=== PATIENT | male | born 1955 | race Caucasian/White ===

== ENCOUNTER 2017-04-10 15:38 | Observation (INO) | payer OTHER, MEDICAID ==
--- NOTE | 2017-04-10 15:53 | EDPHY ---
H & P HPI/ROS: CHIEF COMPLAINT: Hypoxemia HISTORY OF PRESENT ILLNESS: This patient is a 61 year old male with Down Syndrome arriving with his ramp agent for evaluation of low oxygen saturation. He resided at [facility] ([facility]) until a couple of weeks ago, and arrives today with his new ramp agent. His ramp agent states the patient began coughing last night and seemed weak this morning. He ate breakfast like normal, but by noon, he seemed sleepy and was staring at the ceiling with his eyes and mouth wide open. His ramp agent was unable to get him to eat lunch. His medical history states he has chronic respiratory failure with hypoxia, but does not discuss cause. The patient has a cognitive communication deficit as well and is unable to verbalize and further discuss symptoms or history. Caregiver tells me that the patient was on nebulizers prior to being transferred to his care but that these were not continued. He is not on supplemental oxygen. Wheelchair bound. HPI obtained primarily through ramp agent at bedside and past medical records. REVIEW OF SYSTEMS: Unable to perform full ROS due to patient's inability to communicate. Past medical history: Chronic respiratory failure, Down Syndrome, Generalized muscle weakness, Dysphagia, Hypothyroidism, Developmental disorder, Cognitive communication deficit. Past surgical history: Noncontributory Family history: Unknown Social history: Lives in [place]. Caregiver at bedside. General Appearance: Exam difficult due to patient presentation and communication deficit. Vital signs reviewed. BP 156/92. Eyes: Pupils equal and round, no conjunctival injection, no discharge. Anicteric. ENT, Mouth: Mucous membranes are dry, no oropharyngeal erythema or edema. Neck: No lymphadenopathy, supple. Respiratory: Breath sounds difficult to auscultate, crackles at bases Rmore than left.. Poor effort. Cardiovascular: Regular rate and rhythm; no murmur, rub, or gallop. Gastrointestinal: Abdomen is soft, no masses or organomegaly, bowel sounds normal. Skin: Warm and dry, no rashes on exposed skin, normal color. Back: Nontender to palpation over the thoracolumbar spine. No apparent CVAT. Extremities: No lower extremity edema, no calf swelling. Neurological: Moves all four extremities spontaneously but minimally. Psychiatric: No agitation. Constitutional: Initial Vital Signs Temperature (C) 36.8 C 04/10/17 15:52 Heart Rate 87 04/10/17 15:52 Respiratory Rate 18 04/10/17 15:52 Blood Pressure 156/92 H 04/10/17 15:52 O2 Sat (%) 93 04/10/17 15:52 O2 Delivery Mode Nasal Cannula O2 (L/minute) 2 Allergies/Adverse Reactions: bacitracin [From Neosporin ([id number])] Allergy (Verified 04/10/17 15:55) neomycin [From Neosporin ([id number])] Allergy (Verified 04/10/17 15:55) polymyxin B [From Neosporin ([id number])] Allergy (Verified 04/10/17 15:55) Sulfa (Sulfonamide Antibiotics) Allergy (Verified 04/10/17 15:55) tobramycin [From Tobrex] Allergy (Verified 04/10/17 15:55) Home Medications: Medication Instructions Recorded Ascorbic Acid [Vitamin C 500 mg 500 mg PO BID 04/10/17 (*)] Carbamide Peroxide [Debrox Ear 5 drop EACHEAR SA 04/10/17 drops (*)] Carboxymethylcellulos/Glycerin 1 drop EACHEYE DAILY 04/10/17 [Refresh Optive Eye Drops] Carboxymethylcellulose 1% [Refresh 1 nicol EACHEYE DAILY PRN 04/10/17 Celluvisc (*)] Diazepam [Valium 10 MG (*)] 10 mg PO Q6H PRN 04/10/17 Eyelid Cleanser Comb No.7 [Ocusoft 1 each TP BID 04/10/17 Lid Scrub] Ibuprofen [Motrin (*)] 400 mg PO Q4H PRN 04/10/17 Levothyroxine [Synthroid 75 mcg 75 mcg PO DAILY06 04/10/17 (*)] Mineral Oil [MINERAL OIL ENEMA] 7 gm RC DAILY PRN 04/10/17 Multivitamins [Multivitamin (*)] 1 each PO DAILY 04/10/17 Sennosides/Docusate Sodium 1 each PO DAILY 04/10/17 [SENEXON-S TABLET] Zolpidem Tartrate [Ambien] 10 mg PO HS 04/10/17 traZODone [traZODONE 100MG (*)] 100 mg PO HS 04/10/17 Acetaminophen [Tylenol Rectal] 650 mg OH Q4HRS PRN #0 supp 04/11/17 Tamsulosin HCl [Flomax 0.4 MG (*)] 0.4 mg PO DAILY #10 cap 04/11/17 levOFLOXACIN [levAQUIN (*)] 750 mg PO DAILY #6 tab 04/11/17 Medical Decision Making ED Course/Re-evaluation: 61 year old male with Down Syndrome and communication deficits presents following reported hypoxemia. Plan for chest x-ray, labs including CBC and BMP, and hydration for 1L IV NS. Chest x-ray shows hypoventilatory chest with indistinct right basilar opacities that could be related to atelectasis or pneumonia. Lateral chest x-ray was not obtained. Patient's SpO2 dropped to 83% on room air, 93% on 2 L NC. Plan to admit. He received rocephin one gram IV in ED for possible pneumonia. It is unclear to me whether this is a pneumonia or worsening of baseline. 18:[address] Rowe, hospitalist. He accepts admission for pneumonia. Differential Diagnosis: Shortness of breath including but not limited to pulmonary infectious process, COPD, asthma, pulmonary embolus and congestive heart failure. - Data Points Laboratory Results: Laboratory Results 04/10/17 16:20 04/10/17 16:20 Medications Given: Discontinued Medications Diazepam (Valium Injection) 5 mg IVP Q6HRS PRN PRN Reason: Anxiety, Unable to Take PO Stop: 10/07/17 22:14 Last Admin: 04/11/17 13:34 Dose: 5 mg Heparin Sodium (Porcine) (Heparin Sc Injection) 5,000 unit SC Q8 CRWO Stop: 10/07/17 21:59 Last Admin: 04/11/17 15:20 Dose: Not Given Sodium Chloride (Ns) 1,000 mls @ 0 mls/hr IV EDNOW ONE; Wide Open PRN Reason: Protocol Stop: 04/10/17 16:10 Last Admin: 04/10/17 16:25 Dose: 1,000 mls Cefepime HCl 1 gm/ Dextrose 50 mls @ 100 mls/hr IV EDNOW ONE PRN Reason: Protocol Stop: 04/10/17 18:24 Last Admin: 04/10/17 18:18 Dose: Not Given Ceftriaxone Sodium/Dextrose (Rocephin 1 Gm (Premix)) 50 mls @ 100 mls/hr IV EDNOW ONE PRN Reason: Protocol Stop: 04/10/17 18:35 Last Admin: 04/10/17 18:16 Dose: 50 mls Sodium Chloride (Ns) 1,000 mls @ 75 mls/hr IV CONT CROW Stop: 10/07/17 20:14 Last Admin: 04/11/17 11:31 Dose: 1,000 mls Levothyroxine Sodium (Synthroid) 75 mcg PO DAILY06 CROW Stop: 10/08/17 05:59 Last Admin: 04/11/17 06:12 Dose: 75 mcg Departure - Departure Disposition: [facility] Inpatient Acute Clinical Impression: Pneumonia Qualifiers: Pneumonia type: due to unspecified organism Laterality: right Lung location: lower lobe of lung Qualified Code(s): J18.1 - Lobar pneumonia, unspecified organism Condition: Fair Report Scribed for: Cass Moser Report Scribed by: Gali Link Date of Report: 04/10/17 Time of Report: 17:35 Physician Review and Approval Statement: 04/10/17 15:53 Portions of this note were transcribed by the medical insurance claims processor. I, Dr. Cass Moser, personally performed the history, physical exam, and medical decision- making; and confirmed the accuracy of the information in the transcribed note.
[2017-04-10] MEDS ORDERED: NS 1,000 ML IV ONE (16:09)
[2017-04-10 16:32] LABS: % IMMATURE GRANULYOCYTES 0.6 % (0.0-1.1); ABSOLUTE IMMATURE GRANULOCYTES 0.07 10^3/uL (0.00-0.10); ADD DIFF? NO; ADD MORPH? NO; ADD SCAN? NO; ATYPICAL LYMPHOCYTE FLAG 0 (0-99); FRAGMENT RBC FLAG 0 (0-99); HEMATOCRIT 37.2 % (40.0-51.0); HEMOGLOBIN 12.3 g/dL (13.7-17.5); LEFT SHIFT FLG 10 (0-99); LIPEMIA HEMOLYSIS FLAG 80 (0-99); MEAN CELL HEMOGLOBIN 32.5 pg (27.9-34.1); MEAN CELL HEMOGLOBIN CONCENTR. 33.1 g/dL (32.4-36.7); MEAN CELL VOLUME 98.4 fL (81.5-99.8); MEAN PLATELET VOLUME 9.9 fL (8.7-11.7); PLATELET CLUMPS FLAG 20 (0-99); PLATELET COUNT 344 10^3/uL (150-400); RED BLOOD CELL COUNT 3.78 10^6/uL (4.40-6.38)
[2017-04-10 16:45] LABS: ANION GAP 14 mEq/L (8-16); CARBON DIOXIDE 29 mEq/l (22-31); CHLORIDE 96 mEq/L (97-110); CREATININE 1.7 mg/dL (0.7-1.3); GLOMERULAR FILTRATION RATE 41; GLUCOSE 93 mg/dL (70-100); POTASSIUM 4.7 mEq/L (3.5-5.2); SODIUM 139 mEq/L (134-144)
[2017-04-10] MEDS ORDERED: CEFEPIME HCL 1 GM in D5W 50 ML IV ONE (17:55)
[2017-04-10] MEDS ORDERED: ONDANSETRON 4 MG/2 ML VIAL IVP PRN (20:04)
[2017-04-10] MEDS ORDERED: ACETAMINOPHEN 325 MG TAB PO PRN (20:04)
[2017-04-10] MEDS ORDERED: ACETAMINOPHEN 650 MG SUPP PR PRN (20:04)
[2017-04-10] MEDS ORDERED: ONDANSETRON DISINTEGRATING 4 MG TAB PO PRN (20:04)
[2017-04-10] MEDS: NS 1,000 ML IV SCH (21:51)
[2017-04-10] MEDS: HEPARIN 5,000 UNIT/0.5 ML SYR SC SCH (21:54)
[2017-04-10] MEDS: DIAZEPAM 10 MG/2 ML SYR IVP PRN (23:45)
--- NOTE | 2017-04-11 00:47 | GHP ---
[f rep st] HISTORY AND PHYSICAL DATE OF ADMISSION: 04/10/2017 SOURCE: Patient with history of Down syndrome and is essentially nonverbal. Patient's menagerie superintendent left ER for the evening. Case discussed with the patient's primary RN and review of patient's [facility] summary. CHIEF COMPLAINT: Cough, hypoxia. HISTORY OF PRESENT ILLNESS: This is a 61-year-old gentleman with past medical history significant for Down syndrome, cognitive delay due to above, history of dysphagia on a pureed and honey-thickened liquid diet, generalized muscle weakness, listed a history of chronic respiratory failure, and hypothyroidism, who presents to the emergency department today with his menagerie superintendent with concerns for increasing cough of 1 day and noted hypoxia at urgent care. Patient was recently discharged from [facility] approximately 2 weeks ago and subsequently was staying with patient's menagerie superintendent. He had continued on a dysphagia diet and in the last 24 hours has had decreased oral intake, activity , and generalized weakness. Cough was also noted, and so patient was taken to the local urgent care center, where patient was reported to be hypoxic to 83%. Listed as a history of chronic respiratory failure; unknown if patient wears any oxygen at baseline. No reports of fevers or any other concerns. History, again, is limited secondary to patient being nonverbal. REVIEW OF SYSTEMS: Unable to obtain secondary to patient's cognitive delay. ALLERGIES: Sulfa, Neosporin, bacitracin, polymyxin, tobramycin. HOME MEDICATIONS: Per [facility], lactobacillus 1 tab p.o. daily, Ambien 10 mg p.o. at h.s., diazepam 10 mg 1 tab p.o. q.6 hours p.r.n. for anxiety, levothyroxine 75 mcg p.o. in the morning, multivitamin 1 tab p.o. daily , trazodone 100 mg p.o. at h.s., vitamin C 500 mg p.o. b.i.d., senna 1 tab p.o. daily. PAST MEDICAL HISTORY: Down syndrome with nonverbal status, history of aspiration and dysphagia on a pureed and honey-thickened diet, wheelchair bound , chronic renal failure, and hypothyroidism. PAST SURGICAL HISTORY: Unable to obtain. FAMILY HISTORY: Unable to obtain. SOCIAL HISTORY: Patient resides with a menagerie superintendent at this time. Wheelchair bound. No known history of tobacco, drugs, or alcohol. CODE STATUS: DNR/DNI per [facility] Summary. PHYSICAL EXAMINATION: VITAL SIGNS: Initial vital signs in the emergency department, temperature 36.8, pulse 87, respiratory rate 18, O2 sat 93% on 2 L by nasal cannula with decline to 83% on room air challenge, blood pressure 156/ 92. Current vitals, blood pressure 108/61 with a pulse ox of 93% on 2 L by nasal cannula. GENERAL: No acute distress. Frail elderly appearing male is lying in the bed. He is a little bit restless, but not agitated. He is nonverbal, but does appear to try to cooperate with simple instructions. HEAD: Normocephalic and atraumatic. EYES: Voluntary gaze appears to be intact. Patient is not able to follow any commands. No sclerae icterus or conjunctival injection. MOUTH: Mucous membranes appear slightly dry. Patient is edentulous. Patient with a few mucocutaneous ulcers on the right lower lip and palate. Hypoglossia is present, limiting any oropharyngeal exam. NECK: Supple. Trachea midline. CV: Regular rate and rhythm. Limited exam secondary to patient movement, but no murmurs appreciated. RESPIRATORY: Diminished lung sounds at the bases, worse on the right than the left. No crackles, wheezing or rhonchi appreciated. No cough noted. No respiratory distress. ABDOMEN: Positive bowel sounds. Soft. Nontender to palpation. No rebound, guarding, or masses appreciated. : Normal external male genitalia. Patient with adult diaper for incontinence. EXTREMITIES: No cyanosis, clubbing or edema is appreciated. Patient with 1+ pedal pulses bilaterally. MUSCULOSKELETAL: Patient appears to move all his extremities, but he is not able to sit himself up independently and has limited ability to follow commands at this time. NEUROLOGIC: Limited exam secondary to patient's Down syndrome and ability to follow instructions. He is moving all his extremities. There is no focal weakness appreciated. No facial drooping. PSYCHIATRIC: Patient does appear to track examiner. Does try to follow some simple commands, such as taking in deep breaths. LABORATORY DATA: WBC 12.5, H and H 12.3 and 37.2, MCV of 98.4, platelet count is 344, neutrophil percent is 85.6%. No noted immature granulocyte shift. Sodium 139, potassium 4.7, chloride 96, CO2 is 29, anion gap 14, BUN 32, creatinine 1.7. Estimated GFR is 41, glucose 93, calcium 9.0. Chest x-ray: Image report reviewed myself, showing hypoventilatory chest with indistinct right basilar opacity which could be related to atelectasis or pneumonia. Normal heart size. Degenerative changes in the spine with mild S- shaped curvature, thoracolumbar spine. ASSESSMENT/PLAN: This 61-year-old gentleman presents with hypoxia and cough. 1. Hypoxia. Chest x-ray noted right basilar opacity concerning for likely atelectasis, lower concern for pneumonia, although patient does have history of aspiration. Speech Therapy will be consulted. He will be started on Rocephin for prophylactic coverage at this time and supplemental oxygen with titration. Will clarify with the menagerie superintendent or family tomorrow regarding any supplemental oxygen at home. 2. Acute kidney injury, likely related to decreased oral intake and prerenal in nature. Baseline creatinine is unknown as patient has not had any previous visits here. Will continue with some gentle IV fluid hydration overnight and advance diet as tolerated with the assistance of Speech Therapy. Will place patient on a honey-thickened liquid diet and puree at this time. Will plan to repeat renal panel in the morning. 3. Leukocytosis. Patient does not meet any other SIRS criteria. QSOFA score is limited secondary to patient's baseline mentation. Will plan to IV fluid hydrate and repeat CBC in the morning. 4. Aspiration. Patient will be placed on precautions with appropriate dysphagia diet. 5. Anemia. Baseline unknown. No evidence of active bleeding. Will plan to monitor at this time. 6. Elevated blood pressure on initial admission. Patient does not have any previous history of hypertension listed. Will continue to monitor. Blood pressures at this time are acceptable. 7. Code status: DNR/DNI. 8. Fluids/electrolytes/nutrition. IV fluids overnight. Will monitor renal function and electrolytes; replace if needed. Diet: Dysphagia, as noted above. 9. Prophylaxis. Heparin subcu and SCDs as tolerated. 10. Disposition: Patient will be admitted to the medical floor at this time for observation. Will plan to repeat a chest x-ray, PA and lateral view, in the morning. /[id number]/MODL MTDD
[2017-04-11 04:00] VITALS: TEMP 97.9
[2017-04-11 05:13] LABS: % IMMATURE GRANULYOCYTES 0.3 % (0.0-1.1); ABSOLUTE IMMATURE GRANULOCYTES 0.03 10^3/uL (0.00-0.10); ADD DIFF? NO; ADD MORPH? NO; ADD SCAN? NO; ATYPICAL LYMPHOCYTE FLAG 10 (0-99); FRAGMENT RBC FLAG 0 (0-99); HEMATOCRIT 33.5 % (40.0-51.0); HEMOGLOBIN 11.1 g/dL (13.7-17.5); LEFT SHIFT FLG 0 (0-99); LIPEMIA HEMOLYSIS FLAG 80 (0-99); MEAN CELL HEMOGLOBIN 32.4 pg (27.9-34.1); MEAN CELL HEMOGLOBIN CONCENTR. 33.1 g/dL (32.4-36.7); MEAN CELL VOLUME 97.7 fL (81.5-99.8); MEAN PLATELET VOLUME 9.8 fL (8.7-11.7); PLATELET CLUMPS FLAG 0 (0-99); PLATELET COUNT 300 10^3/uL (150-400); RED BLOOD CELL COUNT 3.43 10^6/uL (4.40-6.38); RED CELL DISTRIBUTION WIDTH 13.6 % (11.5-15.2)
[2017-04-11 05:30] LABS: ALANINE AMINOTRANSFERASE 21 IU/L (21-72); ALBUMIN 2.7 g/dL (3.5-5.0); ALKALINE PHOSPHATASE 82 IU/L (38-126); ANION GAP 9 mEq/L (8-16); ASPARTATE AMINOTRANSFERASE 22 IU/L (17-59); BILIRUBIN,TOTAL 0.5 mg/dL (0.1-1.4); CALCIUM 8.5 mg/dL (8.5-10.4); CARBON DIOXIDE 27 mEq/l (22-31); CHLORIDE 101 mEq/L (97-110); CREATININE 1.3 mg/dL (0.7-1.3); GLOMERULAR FILTRATION RATE 56; GLUCOSE 87 mg/dL (70-100); MAGNESIUM 2.1 mg/dL (1.6-2.3); POTASSIUM 4.2 mEq/L (3.5-5.2); SODIUM 137 mEq/L (134-144)
[2017-04-11] MEDS ORDERED: LEVOTHYROXINE 75 MCG TAB PO SCH (06:00)
[2017-04-11] MEDS: HEPARIN 5,000 UNIT/0.5 ML SYR SC SCH ×2 (06:11→15:20)
[2017-04-11 07:16] LABS: COLOR YELLOW; LEUKOCYTE ESTERASE,URINE NEGATIVE (NEGATIVE); NITRITE,URINE NEGATIVE (NEGATIVE)
[2017-04-11 07:20] LABS: RBC,URINE 50-182 /hpf (0-3)
[2017-04-11] MEDS: NS 1,000 ML IV SCH (11:31)
[2017-04-11 11:59] VITALS: BP 127/104
[2017-04-11] MEDS: DIAZEPAM 10 MG/2 ML SYR IVP PRN (13:34)
[2017-04-11] MEDS ORDERED: DIAZEPAM 10 MG TAB PO PRN (14:17)
[2017-04-11] MEDS ORDERED: IBUPROFEN 200 MG TAB PO PRN (14:17)
[2017-04-11] MEDS ORDERED: MINERAL OIL RC PRN (14:17)
[2017-04-11] MEDS ORDERED: CARBOXYMETHYLCELLULOSE 1% 0.4 ML DROPERETTE EACHEYE PRN (14:17)
[2017-04-11] MEDS ORDERED: DIAZEPAM 5 MG TAB PO PRN (14:23)
[2017-04-11] MEDS ORDERED: ZOLPIDEM TARTRATE 5 MG TAB PO PRN (14:24)
--- NOTE | 2017-04-11 14:24 | PDHOMEO2F ---
Home Oxygen Face to Face Home Orders: I certify that a physician or a nurse practitioner or physician's warehouse assistant has had a [id number] encounter with this patient on the date of this order due to the diagnosis listed, which relates to the primary reason the patient requires home oxygen. Alternative treatments have been tried, or considered, and deemed ineffective. It is anticipated that supplemental oxygen will result in improvement with treatment. Home oxygen qualifying diagnosis: PNA SpO2 on room air (%): 83 Frequency of home oxygen needed: continuous Home oxygen liters per minute: 2 Home oxygen delivery device: nasal cannula Concentrator: Yes E-tanks for mobility and back up: Yes If ordering portable O2, is the patient mobile in the home?: Yes I certify that, based on these findings, the home oxygen is medically necessary for this patient for the following length of time. Length of time home oxygen needed: 1 month (unknown)
--- NOTE | 2017-04-11 15:14 | GDS ---
[f rep st] DISCHARGE SUMMARY DISCHARGE DIAGNOSES: 1. Urinary retention. 2. Pneumonia. 3. Acute kidney injury. 4. Leukocytosis. 5. Chronic aspiration. 6. Anemia. 7. Hypertension. PHYSICAL EXAM: GENERAL: The patient is alert. VITAL SIGNS: Afebrile at 36.6, pulse is 71, respir atory rate is 15, blood pressure is 127/104. He is saturating 83% on room air, greater than 90% on 2 L. I have seen and evaluated the patient on the day of discharge. HOSPITAL COURSE: The patient is a 61-year-old male who suffers from Down syndrome and presented to the emergency room with complaints of cough. He has been evaluated and diagnosed with: 1. Community-acquired pneumonia. During this hospitalization he was treated with IV Rocephin. He has been transitioned to oral Levaquin. A prescription has been provided and he will continue this in the outpatient setting. 2. Acute kidney injury. This is resolved with IV hydration secondary to the patient's dehydration. 3. Urinary retention. The patient has been straight cathed during this hospitalization. Further a ction has been discussed with his MD TAVARES. It is felt that he would not benefit from a Cardona cathete r at the time of disposition, as in the past he has tried to pull it out. He will follow up with martinez melendrez urologist and he will continue to be straight cathed in the outpatient setting. He has been initi ated on Flomax at the time of disposition and he does not have any signs of urinary tract infection per his urinalysis. His caregiver will pay close attention to this condition. 4. Leukocytosis in the setting of dehydration and community-acquired pneumonia. It is improving. 5. History of aspiration. Speech therapy evaluation was performed. The patient will continue a dy sphagia diet with no further recommendations and noted aspiration during this hospital course. 6. Anemia. No signs of active bleeding. Will have outpatient evaluation by his primary care physi anupam. 7. Hypertension. This is likely situational given the patient's hospitalization. Antihypertensive medications have not been initiated during this hospital course. 8. Acute hypoxemic respiratory failure. The patient is requiring supplemental oxygen which has bee n ordered at the time of disposition, likely secondary to his pneumonia. DISPOSITION: The patient will be discharged to return to his normal living environment. He is part of [facility] and has a 24-hour caregiver who resides with him. Case Management has reviewed wi th his MD TAVARES the plan of care and is in agreement with this discharge plan. DISCHARGE MEDICATIONS: Please refer to EMR form. I have provided a prescription for Flomax as well as Levaquin at the time of disposition. FOLLOWUP: Will be with the urologist of choice as well as the patient's primary care physician, and further laboratory evaluation. I spent greater than 35 minutes in the care, coordination, and management of the patient's dispositi on. /[id number]/MODL
[2017-04-11 16:42] VITALS: PULSE 80; RESP 16; O2SAT 94
[2017-04-11] MEDS ORDERED: NON-FORMULARY NEW DRUG (Zolpidem Tartrate [Ambien] 10 MG) PO SCH (21:00)
[2017-04-11] MEDS ORDERED: ZOLPIDEM TARTRATE 5 MG TAB PO SCH (21:00)
[2017-04-11] MEDS ORDERED: [UNRECOGNIZED DRUG - OTHER] TP SCH (21:00)
[2017-04-11] MEDS ORDERED: traZODone 100 MG TAB PO SCH (21:00)
[2017-04-11] MEDS ORDERED: ASCORBIC ACID 500 MG TAB PO SCH (21:00)
[2017-04-12] MEDS ORDERED: SENNOSIDES/DOCUSATE SODIUM TAB PO SCH (09:00)
[2017-04-12] MEDS ORDERED: CARBOXYMETHYLCELLULOS EACHEYE SCH (09:00)
[2017-04-12] MEDS ORDERED: MULTIVITAMINS 1 EACH TAB PO SCH (09:00)
[2017-04-12] MEDS ORDERED: GLYCERIN EACHEYE SCH (09:00)
[2017-04-12] MEDS ORDERED: CARBAMIDE PEROXIDE 15 ML BOTTLE EACHEAR SCH (14:17)
== END 2017-04-11 17:06 | disposition home or self-care (01) ==
LOC: EDUNIT# → INTOOBSV 18:07 → F3N 20:43
PROVIDERS: ADMIT Student in an Organized Health Care Education/Training Program; ATTEND Internal Medicine
DX: J18.9 Pneumonia, unspecified organism (principal); J96.01 Acute respiratory failure with hypoxia; E86.9 Volume depletion, unspecified; R33.9 Retention of urine, unspecified; R13.10 Dysphagia, unspecified; N17.9 Acute kidney failure, unspecified; D72.829 Elevated white blood cell count, unspecified; D64.9 Anemia, unspecified; I10 Essential (primary) hypertension; Q90.9 Down syndrome, unspecified; E03.9 Hypothyroidism, unspecified; Z88.2 Allergy status to sulfonamides; Z99.3 Dependence on wheelchair; Z66 Do not resuscitate
CPT/HCPCS: 71010; 92610; 96361; 96365; 99285; G0378; G8996; G8997; G8998; J0696; J0692